=== PATIENT | male | born 1980 | race Caucasian/White ===

== ENCOUNTER 2016-05-04 09:34 | Day surgery (SDC) | payer OTHER ==
--- NOTE | 2016-05-03 14:34 | HP ---
DATE OF CLINIC: 04/29/2016 JIMENEZ CLAIXTO : 1980 PLANNED PROCEDURE: Right Shoulder Arthroscopic SLAP Repair and Biceps Tenodesis DATE OF SURGERY: May 04, 2016 SURGEON: Pepito Lake M.D. HISTORY OF PRESENT ILLNESS Jimenez Calixto is a 36 year old male. * Medication list reviewed with patient allergy list reviewed with patient. * Tried NSAIDS ibuprofen * Has not tried Physical Therapy * Has not tried Injections This is a 36-year-old right-hand dominant gentleman who is here with complaints of right shoulder pain since the middle of January. He was picking up some heavy implements at work when he reached his arm out in front of him he felt a pop in his shoulder and had immediate pain that radiated down the front the lateral portions of the shoulder. Since that time he has been off of work and on limited duty. He has been wearing a sling for that time using ibuprofen and or tramadol. He has not had complete resolution of his pain. He has pain primarily if he tries to internally rotate or left above his head or lift anything heavy. He rates it a 7/10. He states that it is primarily an anterior portion of the shoulder and radiating down. He does not have any previous injuries on this shoulder. He has had no injections in no other medications and no previous surgeries on this side. He has not been to physical therapy. He has seen Roseanne Snell for management of his workman comp claim. After discussion and review of treatment options, both operative and non-operative, he has elected to proceed with surgery and presents today preoperatively. PAST MEDICAL AND SURGICAL HISTORY: Past medical and surgical history are as documented. CURRENT MEDICATION * Meloxicam 15 MG Tablet 1 once a day, 45 days, 0 refills PAST MEDICAL/SURGICAL HISTORY Reported: No recent change in medical history. Medical: Reported numbness and Reported tingling. Surgical / Procedural: Prior surgery [address] 2007. Medications: Taking OTC pain medication. Pediatric: Pediatric history: chicken pox. No chronic health conditions no regular medications. Surgical: * Tonsillectomy 3 surgeries on airway for growth ( trachea) causing SOB obstruction ENT removal 2007 benign SOCIAL HISTORY Social history unchanged. Behavioral: Chewing tobacco 1 can every 2 weeks and non-smoker never smoked. Smoking status: Never smoker. Alcohol: Alcohol use 2 drinks per week. Home Environment: Lives alone. 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 Marital: with 2 children. ALLERGIES * Vicodin FAMILY HISTORY Children, 2 3 children living Family history unchanged Non contributory Paternal: Thyroid disorder mass removed non cancerous Maternal grandmother's: Acute myocardial infarction Hypertension Diabetes mellitus Family medical history Father: Thyroid Disease REVIEW OF SYSTEMS No recent constitutional symptoms to include fevers and chills. No recent cardiovascular symptoms to include chest pain or palpitations. No recent respiratory symptoms to include shortness of breath or recent infections. PHYSICAL FINDINGS * Vitals taken 04/29/2016 09:44 am BP-Sitting R 118/72 mmHg BP Cuff Size Regular Pulse Rate-Sitting 58 bpm Temp-Oral 97.7 F Height 70 in Weight 192 lbs Body Mass Index 27.5 kg/m2 Body Surface Area 2.05 m2 Pain Level 6 Ears, Nose, Throat: * ENT: normal. Lungs: * Clear to auscultation. Cardiovascular: Heart Rate and Rhythm: * Normal. Abdomen: * Normal. Neurological: Motor: * Dominant Hand = Right Hand. Patient is a well-developed, well-nourished male in no acute distress. They are awake, alert and conversant throughout the encounter. CARDIOVASCULAR: Intact peripheral pulses on bilateral upper extremities. No significant edema on inspection of bilateral upper extremities. NEUROLOGIC: Patient had intact coordinated composite motion of the bilateral upper extremities and sensation intact to light touch in all distributions of bilateral upper extremities. PSYCHIATRIC: Patient was oriented to person, place and time and displayed appropriate mood and affect during the encounter. SKIN: Exam of the skin on bilateral upper extremities showed no significant scars, lesions, rashes or masses. FOCUSED MUSCULOSKELETAL EXAM: The patient has no erythema, ecchymosis or swelling about the right shoulder. He has tenderness to palpation anteriorly and laterally on the shoulder and back in the periscapular musculature with motion. He has no evidence of instability. He has a range of motion was forward flexion and abduction to about 100 degrees each. He can externally rotate about 25 degrees from neutral with no internal rotation beyond the hip pocket without severe pain. He has a positive [place]'s exam. He has some mildly positive impingement signs. He has positive biceps signs. He has strength that is limited by pain, but otherwise he is 5/5. IMAGING A review of his x-rays shows no fractures or dislocations, a well reduced humeral head with a type 1 to type 2 acromion. His MRI demonstrates a SLAP tear with tracking of contrast behind the superior labrum, but no evidence of rotator cuff pathology. ASSESSMENT A 36-year-old male with a right shoulder SLAP tear and concomitant impingement. THERAPY * Patient not eligible for fall risk assessment. PLAN * Superior glenoid labrum lesion of right shoulder, subs Percocet 5-325 MG TABS, 1 every 4 - 6 hours as needed, 14 days, 0 refills * Arthroscopy of the shoulder with SLAP repair and biceps tenodesis -right CARE TEAM No Current PCP Family Practice SURGICAL CONSENT We have discussed surgical options including right shoulder arthroscopic SLAP repair, biceps tenodesis and non-operative management. The patient was counseled in detail regarding the diagnosis, treatment options available, prognosis of each treatment option and the potential risks and complications. The risks of surgery include, but are not limited to, anesthetic , neurovascular complications, pulmonary embolism, deep vein thrombosis, wound dehiscence, failure of any or all of the discussed procedures, infection of the joint or surrounding soft tissue, need for revision surgery, chronic pain, limitations in activities of daily living, inability to return to work, and loss of normal range of motion or functional use of the extremity. There is the possibility of failure over time that may require additional operative or non-operative treatment. The patient acknowledged that there are a number of perioperative risks not mentioned here and would still like to proceed. The patient is aware of and understands these risks, and wishes to proceed with the proposed surgical procedure and other procedures as indicated at the time of surgery. We will have the patient see their PCP for a preoperative medical risk assessment. The preoperative instructions were reviewed with the patient and all questions were answered. PB/sg
[~2016-05-04 09:34] MED LIST: CEFAZOLIN SODIUM 2 GRAM PREMIX 100 ML IV ONE; IV START KIT ONE; LACTATED RINGERS 1,000 ML ONE
[2016-05-04] MEDS ORDERED: FENTANYL 250 MCG/5 ML AMP ONE (10:34)
[2016-05-04] MEDS ORDERED: MIDAZOLAM HCL 5 MG/5 ML VIAL ONE (10:34)
[2016-05-04] MEDS ORDERED: ROPIVACAINE 0.5% 30 ML VIAL ONE (10:36)
[2016-05-04] MEDS ORDERED: NERVE BLOCK PROCEDURAL TRAY 1 EACH ONE (10:37)
[2016-05-04] MEDS ORDERED: CEFAZOLIN SODIUM 2 GRAM PREMIX 100 ML IV PRN (11:45)
[2016-05-04] MEDS ORDERED: MIDAZOLAM HCL 1 MG/ML 2ML VIAL ONE (11:52)
[2016-05-04] MEDS ORDERED: FENTANYL 100 MCG/2 ML VIAL ONE (13:45)
[2016-05-04] MEDS ORDERED: ONDANSETRON 4 MG/2ML 2 ML VIAL ONE (14:04)
[2016-05-04] MEDS ORDERED: DEXAMETHASONE SOD PHOS 4 MG/1 ML VIAL ONE (14:04)
[2016-05-04] MEDS ORDERED: DIPHENHYDRAMINE HCL 50 MG/1 ML VIAL ONE (14:04)
[2016-05-04] MEDS ORDERED: PROPOFOL 20 ML IV ONE (14:04)
[2016-05-04] MEDS ORDERED: ROCURONIUM BROMIDE 10 MG/ML DOSE IV ONE (14:04)
[2016-05-04] MEDS ORDERED: LIDOCAINE 2% (PRES FREE) 5 ML VIAL ONE (14:04)
[2016-05-04] MEDS ORDERED: NALOXONE HCL 0.4 MG/ML VIAL IV PRN (14:09)
[2016-05-04] MEDS ORDERED: PROMETHAZINE HCL 25 MG/ML VIAL IM PRN (14:09)
[2016-05-04] MEDS ORDERED: FENTANYL 100 MCG/2 ML VIAL IV PRN (14:09)
[2016-05-04] MEDS ORDERED: ATROPINE SULFATE 0.4 MG/1 ML VIAL IV PRN (14:09)
[2016-05-04] MEDS ORDERED: HYDROMORPHONE HCL 1 MG/ML SYRINGE IV PRN ×2 (14:09→16:13)
[2016-05-04] MEDS ORDERED: ON-Q PUMP/ROPIVACAINE 0.2% 450 ML in PREMIX BAG 1 EACH NB PRN (14:09)
[2016-05-04] MEDS ORDERED: ONDANSETRON 4 MG/2ML 2 ML VIAL IV PRN ×2 (14:09→16:13)
[2016-05-04] MEDS ORDERED: LACTATED RINGERS 1,000 ML IV SCH ×2 (14:15→16:13)
[2016-05-04] MEDS ORDERED: BUPIVACAINE 0.5% (PRES FREE) 30 ML VIAL ONE (14:40)
[2016-05-04] MEDS ORDERED: NEOSTIGMINE METHYLSULFATE 1 MG/ML DOSE ONE (14:50)
[2016-05-04] MEDS ORDERED: GLYCOPYRROLATE 0.2 MG/ML 1ML VIAL ONE (14:50)
--- NOTE | 2016-05-04 15:18 | PCMBPN ---
Brief Post Op Note: Date of Procedure: 05/04/16 Start Time: 1415 Preoperative Diagnosis: 1. right shoulder SLAP tear, biceps tendonitis Postoperative Diagnosis: 1. Same Procedure: right shoulder arthroscopy with SLAP repair, biceps tenotomy, subpectoral biceps tenodesis Surgeon: Pepito Lake MD Assist: Andres Brantley PA-C Anesthesia: Jorge Lamas Findings: as above Condition: stable to PACU Complications: none IV Fluids: 2000 mLs of LR Urine Output: 0 mLs Estimated Blood Loss: 50 mLs Tourniquet Time: none Specimens: none Implants: Arthrex Pushlock for SLAP repair, biceps tenodesis button Drains: none Pepito Lake MD
[2016-05-04] MEDS ORDERED: ON-Q PUMP/ROPIVACAINE 0.2% 450 ML ONE (15:26)
[2016-05-04] MEDS ORDERED: ACETAMINOPHEN 325 MG TABLET PO PRN (16:13)
[2016-05-04] MEDS ORDERED: DIPHENHYDRAMINE HCL 50 MG/1 ML VIAL IV PRN (16:13)
[2016-05-04] MEDS ORDERED: OXYCODONE/ACETAMINOPHEN 5/325 MG TABLET PO PRN (16:13)
--- NOTE | 2016-05-04 16:14 | RAD ---
Exam: Single view right shoulder COMPARISON: 02/11/2016 INDICATION: Right shoulder postop lap repair and biceps tendinosis. FINDINGS: Single AP view of the right shoulder was obtained. Alignment is normal. No fracture is identified. Radiopacity projects over the proximal humeral diaphysis. Whether this is artifact or related to the surgery is uncertain. Atelectasis is noted within the right lung base. IMPRESSION: Unremarkable single view right shoulder post surgery.
[2016-05-04] MEDS ORDERED: OXYCODONE/ACETAMINOPHEN 5/325 MG TABLET ONE (16:55)
--- NOTE | 2016-05-05 10:45 | OP ---
Jimenez CALIXTO : 1980 [id number] DATE OF SERVICE: May 04, 2016 PREOPERATIVE DIAGNOSES: Right shoulders SLAP tear and biceps tendinitis. POSTOPERATIVE DIAGNOSES: Right shoulders SLAP tear and biceps tendinitis. PROCEDURE PERFORMED: RIGHT SHOULDER ARTHROSCOPY WITH SLAP REPAIR, BICEPS TENOTOMY AND [place] SUBPECTORAL BICEPS TENODESIS. SURGEON: Pepito Lake M.D. REPAIR TECH: Andres Brantley P.A.-C. ANESTHESIA: Alis HeadNEj. SPECIMENS: No material was sent to the laboratory. ESTIMATED BLOOD LOSS: 50 mL. INTRAVENOUS FLUIDS: 2,000 mL of crystalloid. TOURNIQUET TIME: None. SPECIMENS: None. IMPLANTS: Arthrex PushLock for the SLAP repair and biceps tenodesis button for the subpectoral biceps tenodesis. DRAINS: No drains. INDICATIONS: This is a 36-year-old right-hand dominant gentleman who has history, physical exam and imaging findings consistent with a superior labral tear and biceps tendinitis. Given these findings and his failure to improve with nonoperative management he was offered an arthroscopy with SLAP repair and/or subpectoral biceps tenodesis. Please see his preoperative H&P for additional details. DESCRIPTION OF PROCEDURE: The patient was identified in the preoperative holding area where he was marked with an indelible marker by the operating surgeon. He was taken to the operating room where he was placed in the supine position on the operating room table. An interscalene block was administered under ultrasound guidance and general anesthesia was induced. He received perioperative antibiotics. He was then repositioned in an upgrade beach chair position. All bony prominences were padded. He was prepped and draped in the usual sterile fashion for surgery. An operative time out was performed and confirmed by all members of the operative team and then a posterior portal was created, a 30 degree viewing arthroscope was inserted into the glenohumeral joint. Optics were directed anteriorly. The anterior portal was localized with a spinal needle and created in a standard fashion. The probe was inserted through the anterior cannula and used in completion of diagnostic arthroscopy with the following findings: Intact anterior and posterior labral structures, present Zee complex with a cord like middle glenohumeral ligament. Subscapularis, supraspinatus, infraspinatus, teres minor tendons were all intact. The chondral surfaces of the humeral head and the glenoid were intact. The superior labrum had torn away from the area of the supraglenoid tubercle and was drooping down into the joint. The biceps tendon was extensively injected and had a split tear in its intra-articular portion. At this point the probe was exchanged for radiofrequency ablater and this was used to perform a biceps tenotomy. With the biceps retracted out of the shoulder the superior labrum continued to droop down into the joint so a decision was made to do a superior labral repair. A spinal needle was placed through the superior portion of the shoulder to generate a Neviaser portal. We dilated over the needle and placed a portal 6 mm cannula. Through the anterior cannula tight to the left suture passer was placed through the superior labrum and used to shuttle a folded labral tape through to the superior cannula. This was threaded over itself and then tensioned forming a horizontal mattress around the superior labrum. The tails were threaded onto a 2.9 mm PushLock and then through this same superior cannula a single drill hole was placed in the region of the supraglenoid tubercle and the PushLock was tensioned and placed into this whole with good stabilization of the superior labrum. At this point we felt that we had addressed the intra-articular pathology so the camera and instruments were removed. Attention was shifted to the subpectoral biceps tenodesis. A 3 cm incision just lateral to the deltopectoral group was created just above the patient's anterior axillary fold. Dissection was carried down on the medial side of the biceps approaching the anterior humerus. The biceps tendon long had was fished out through this incision and whip-stitched with a #2 FiberWire. Retractors were placed medial and lateral to the humerus and atrial whole was placed 1 cm above the inferior portal pec tendon within the biceps tendon groove. The biceps tenodesis button was threaded on to the sutures for the tendon and deployed into the intramedullary space of the proximal humerus. Tension was applied. One tail was passed through the tendon using a free needle and then the sutures were tied. The arm was taken through a range of motion and appropriate tension was noted on the biceps tenodesis location with no gapping. At this point the retractors were removed. The wound was copiously irrigated with sterile saline, and all skin incisions were closed with Nylon. A sterile dressing of Xeroform, fluffs, ABDs and Medipore tape was applied. The patient was placed into an abduction pillow shoulder immobilizer and the drapes were removed. He was awakened from his anesthesia, extubated in the operating room without difficulty. He is transferred to a stretcher and taken postoperatively the postanesthesia care unit in stable condition. There were no observed intraoperative complications during this procedure. Job [id number] Cc: [facility]
== END 2016-05-04 18:34 | disposition home or self-care (01) ==
LOC: SDC 09:34
PROVIDERS: ATTEND Orthopaedic Surgery
PROC: 0MM14ZZ Reattachment of Right Shoulder Bursa and Ligament, Percutaneous Endoscopic Approach (ICD-10-PCS; principal; 2016-05-04)
DX: S43.431A Superior glenoid labrum lesion of right shoulder, initial encounter (principal); M75.21 Bicipital tendinitis, right shoulder; M75.41 Impingement syndrome of right shoulder; X50.0XXA Overexertion from strenuous movement or load, initial encounter; Y99.0 Civilian activity done for income or pay; F17.220 Nicotine dependence, chewing tobacco, uncomplicated; Z88.5 Allergy status to narcotic agent; Z79.899 Other long term (current) drug therapy
CPT/HCPCS: 73020; 29807; 23430; J1200; J3010 ×2; J1100; J2795 ×3; A9270; J2250 ×2; J2405; J7120; A4306; J0690